=== PATIENT | female | born 1985 | race Caucasian/White ===

== ENCOUNTER 2016-07-09 07:16 | Day surgery (SDC) | payer OTHER ==
[~2016-07-09 07:16] MED LIST: PROPOFOL INJ 200 MG/20 ML VIAL IV ONE
[2016-07-09 08:50] VITALS: BP 112/62
--- NOTE | 2016-07-09 13:29 | Operative Report ---
Operative Report DATE OF SURGERY: 07/09/16 Operative Report: The risks, benefits and alternatives of the procedure including risks of bleeding, perforation requiring surgery are explained to the patient in detail informed consents obtained. Patient is taken back to the endoscopy suite and placed in a left, lateral decubital position. Timeout is called. Propofol medications administered. A rectal examination was done which did not reveal any masses, tears or fissures. An Olympus was scope is inserted patient's rectum. The scope was then gradually advanced all the way to the cecum. The cecum as identified by the usual anatomical landmarks including the ileocecal valve as well as the appendiceal office. Photodocumentation is obtained. Scope was then sequentially pulled back creative rest segments of the colon including the ascending colon, hepatic flexure, transverse colon, slight flexure , descending colon and finally into the rectosigmoid portions of the colon. Retroflexion maneuvers performed. PREOPERATIVE DIAGNOSIS: Personal history of polyps, colon surveillance POSTOPERATIVE DIAGNOSIS: Mild terminal ileitis. No further polyps noted. Internal hemorrhoids OPERATION: Colonoscopy with biopsy SURGEON: DAISHA HARRISON ANESTHESIA: LMAC TISSUE REMOVED OR ALTERED: Terminal ileum specimens obtained COMPLICATIONS: None. ESTIMATED BLOOD LOSS: none. INTRAOPERATIVE FINDINGS: As noted above. PROCEDURE: Patient tolerated procedure well. No immediate postprocedure complications are noted. Patient is discharged in good condition. Discharge date 07/09/2016. Discharge diet: Regular. Discharge activity: Regular. 2-3 week follow-up to discuss findings. We'll await on biopsies. 10 year surveillance colonoscopy would be adequate. Patient is instructed to call the office or proceed to the emergency room should there be any further problems or questions.
== END 2016-07-09 09:00 | disposition home or self-care (01) ==
LOC: END 07:16
PROVIDERS: ATTEND Internal Medicine Gastroenterology
PROC: 0DBB8ZX Excision of Ileum, Via Natural or Artificial Opening Endoscopic, Diagnostic (ICD-10-PCS; principal; 2016-07-09 08:00)
DX: K52.9 Noninfective gastroenteritis and colitis, unspecified (principal); K64.8 Other hemorrhoids; Z86.010 Personal history of colon polyps; I10 Essential (primary) hypertension; E66.9 Obesity, unspecified; Z68.42 Body mass index [BMI] 45.0-49.9, adult
CPT/HCPCS: 45380; 88305 ×2; J2704; 810

== ENCOUNTER → 2017-09-21 | Outpatient (CLI) | payer OTHER ==
[2017-09-21 10:07] LABS: ABSOLUTE EOSINOPHILS # (AUTO) 0.1 10^3/uL (0.0-0.6); ABSOLUTE MONOCYTES (AUTO) 0.6 10^3/uL (0.1-1.4); ABSOLUTE NEUT (AUTO) 5.9 10^3/uL (1.7-8.2); BASOPHILS % (AUTO) 0.5 % (0-2); EOSINOPHILS % (AUTO) 1.2 % (0-6); HEMATOCRIT 38.4 % (36.0-47.0); MEAN CORPUSCULAR HEMOGLOBIN 27.5 pg (27.0-33.4); MEAN CORPUSCULAR HGB CONC 33.8 g/dL (32.0-36.0); MEAN CORPUSCULAR VOLUME 81 fl (80-97); MONOCYTES % (AUTO) 6.7 % (3-13); PLATELET COUNT 332 10^3/uL (150-450); RED BLOOD COUNT 4.71 10^6/uL (3.72-5.28); RED CELL DISTRIBUTION WIDTH 13.8 % (11.5-14.0); SEGMENTED NEUTROPHILS % (AUTO) 68.6 % (42-78); TOTAL CELLS COUNTED % (AUTO) 100 %; WHITE BLOOD COUNT 8.6 10^3/uL (4.0-10.5)
[2017-09-21 10:10] LABS: ALANINE AMINOTRANSFERASE 22 U/L (9-52); ALBUMIN 4.2 g/dL (3.5-5.0); ALKALINE PHOSPHATASE 77 U/L (38-126); ANION GAP 9 (5-19); ASPARTATE AMINO TRANSFERASE 13 U/L (14-36); BILIRUBIN,DIRECT 0.3 mg/dL (0.0-0.4); BILIRUBIN,TOTAL 0.6 mg/dL (0.2-1.3); BLOOD UREA NITROGEN 11 mg/dL (7-20); CALCIUM 9.6 mg/dL (8.4-10.2); CARBON DIOXIDE 28 mmol/L (22-30); CHLORIDE 106 mmol/L (98-107); GLUCOSE 83 mg/dL (75-110); POTASSIUM 4.6 mmol/L (3.6-5.0); SODIUM 143.1 mmol/L (137-145); TOTAL PROTEIN 7.3 g/dL (6.3-8.2)
== END ==
LOC: OD 08:57
PROVIDERS: ATTEND Specialist
DX: N91.1 Secondary amenorrhea (principal)
CPT/HCPCS: 36415; 80053; 83001; 83036; 84443; 85025

== ENCOUNTER → 2018-01-13 | Outpatient (CLI) | payer OTHER ==
--- NOTE | 2018-01-13 20:43 | RADIOLOGY REPORT (SQ) ---
EXAM DESCRIPTION: MRI CERVICAL SPINE WITHOUT COMPLETED DATE/TIME: 01/13/2018 8:09 pm REASON FOR STUDY: M54.12 RADICULOPATHY, CERVICAL REGION M54.12 RADICULOPATHY, CERVICAL REGION M75.1 11 INCOMPLETE ROTATR-CUFF TEAR/RUPTR OF R SHOULDER, NOT COMPARISON: None. TECHNIQUE: Sagittal and Axial imaging includes T1, T2, STIR and gradient echo sequences. LIMITATIONS: None. FINDINGS: ALIGNMENT: Normal. VERTEBRAE: Intact. BONE MARROW: Normal. No marrow replacement or reactive changes. DISCS: Normal. No significant abnormal signal or loss of height. HARDWARE: None in the spine. CORD AND BASE OF BRAIN: Normal in size and signal intensity. SOFT TISSUES: No soft tissue masses. C1-C2: No significant spinal stenosis. C2-C3: No significant spinal stenosis or exit foraminal stenosis. C3-C4: No significant spinal stenosis or exit foraminal stenosis. C4-C5: No significant spinal stenosis or exit foraminal stenosis. C5-C6: No significant spinal stenosis or exit foraminal stenosis. C6-C7: There is a tiny midline disc/ osteophyte complex with the appearance of a small annular tear. There is no central canal or foraminal stenosis. C7-T1: No significant spinal stenosis or exit foraminal stenosis. UPPER THORACIC: Incompletely imaged. No significant spinal stenosis or exit foraminal stenosis. OTHER: No other significant finding. IMPRESSION: There is a tiny midline disc/ osteophyte complex at C6-7 with a small annular tear. TECHNICAL DOCUMENTATION: JOB ID: [id number] [employer]- All Rights Reserved Reading location - IP/workstation name: [email or web address]
--- NOTE | 2018-01-14 08:28 | RADIOLOGY REPORT (SQ) ---
EXAM DESCRIPTION: MRI RT UPPER JOINT WITHOUT COMPLETED DATE/TIME: 01/13/2018 8:09 pm REASON FOR STUDY: M75.111 INCOMPLETE ROTATR-CUFF TEAR/RUPTR OF R SHOULDER, NOT TRAUMA M54.12 RADICU LOPATHY, CERVICAL REGION M75.111 INCOMPLETE ROTATR-CUFF TEAR/RUPTR OF R SHOULDER, NOT COMPARISON: None. TECHNIQUE: Right shoulder images acquired and stored on PACS. Multiplanar imaging to include fat sen sitive sequences such as T1, water sensitive sequences such as FST2/STIR, cartilage sensitive sequenc es such as FSPD/gradient-echo sequences. LIMITATIONS: Limited signal to noise, large patient imaged in the body coil FINDINGS: BONE MARROW AND CORTEX: No worrisome bone lesions or marrow replacement. No occult fractur es. JOINT OR BURSAL EFFUSION: Physiologic joint space fluid with small amount of fluid in the subcoracoid recess GLENO-HUMERAL ARTICULATION: Normal articulation. No subluxation. No cystic change. No osteophytes or cartilage loss. ACROMION AND AC JOINT: Type 2 with moderate AC joint hypertrophy best shown on sagittal image 12. M ild narrowing of the subacromial space with trace fluid in the subacromial/subdeltoid bursa ROTATOR CUFF AND INTERVAL: Minimal increased intrinsic signal in the distal supra and infraspinatus t endons from mild tendinopathy best shown on sagittal images 3-9, and coronal images 9-12. subscapula ris is intact. No rotator interval tear. No rotator interval thickening to suggest adhesive capsulitis. LABRUM AND BICEPS LABRAL COMPLEX: Intact. No labral tear. Intra-articular long-head biceps tendon n ormal. Distal biceps in normal location in bicipital groove. REMAINDER OF LABRUM AND IGHL : No gross tear or paralabral cyst formation. Labral evaluation is less than optimal without joint distention. No thickening of IGHL to suggest adhesive capsulitis. PERIARTICULAR AND ADJACENT SOFT TISSUES: No masses or abnormal nodes. OTHER: No other significant finding. IMPRESSION: Mild distal supra and infraspinatus tendinopathy TECHNICAL DOCUMENTATION: JOB ID: [id number] [employer]- All Rights Reserved Reading location - IP/workstation name: [email or web address]
== END ==
LOC: RAD 20:09
PROVIDERS: ATTEND Orthopaedic Surgery
DX: M54.12 Radiculopathy, cervical region (principal); M75.111 Incomplete rotator cuff tear or rupture of right shoulder, not specified as traumatic
CPT/HCPCS: 72141

== ENCOUNTER → 2018-02-13 | Outpatient (CLI) | payer OTHER ==
--- NOTE | 2018-02-13 20:47 | XCELERA REPORT ---
[address] [address] Transthoracic Echocardiogram Report Name: ROSIO PINEDA Age: 32 yrs Gender: Female : 1985 Patient Status: Outpatient Patient Location: RAD Study Date: 02/13/2018 03:58 PM Reason For Study: PALPITATIONS Ordering Physician: MANDY VELIZ Performed By: Josefa Guerrero Interpretation Summary technically poor study using this GE machine, and pt 304#. Suboptimal SAX of AV, unable to see valve configuration. Very poor A4 chamber view, and no Ap 2 chamber view. Unable to assess biplane LVEF. R heart poorly visualized. Only a few observations made. Minimal post pericardial effusion. AV poorly vsualized, no suspected. No AR. MV appears normal, no MS, no MR, and LA not enlarged by M-mode, CHON not calculated by statistical technician. LV only seen in PLAX, poorly seen in Apical view and no A2 chamber view recorded. Probably normal LV size, and LV function based on PLAX view only. Incomplete LV segmental analysis. Probably no LV diastolic dysfunction based on E/E' ratio. RH poorly visualized, no PVSP derived due to no TR jet imaged. MMode/2D Measurements & Calculations RVDd: 3.0 cm LVIDd: 5.6 cm FS: 39.3 % Ao root diam: 2.4 cm IVSd: 0.50 cm LVIDs: 3.4 cm EDV(Teich): 155.3 ml Ao root area: 4.6 cm2 LVPWd: 0.89 cm ESV(Teich): 48.0 ml EF(Teich): 69.1 % Doppler Measurements & Calculations MV E max ryan: MV dec slope: Ao V2 max: LV V1 max P.0 cm/sec 130.8 cm/sec 3.4 mmHg MV A max ryan: 752.0 cm/sec2 Ao max PG: LV V1 max: 52.8 cm/sec MV dec time: 0.14 sec 6.8 mmHg 91.9 cm/sec MV E/A: 2.0 PA V2 max: TR max ryan: 102.5 cm/sec 253.1 cm/sec PA max P.2 mmHg TR max P.6 mmHg Left Ventricle The left ventricle is not well visualized. Consider additional methods to assess LVEF such as MUGA scan, CTA heart, cardiac MRI, FERNANDO, etc. if clinically indicated. The left ventricular ejection fraction is normal. Doppler measurements suggest normal left ventricular diastolic function. Regional wall motion abnormalities cannot be excluded due to limited visualization. The left ventricular apex is not well visualized. Right Ventricle The right ventricle is normal size. Atria Right atrium not well visualized secondary to technical limitations. The left atrial size is normal. There is no Doppler evidence for an interatrial shunt. Mitral Valve The mitral valve is normal in structure and function. There is no evidence of mitral valve prolapse. There is no mitral valve stenosis. There is no mitral regurgitation noted. Aortic Valve The aortic valve is normal in structure and functions normally. The aortic valve is not well visualized secondary to technical limitations. There is no aortic valvular vegetation. There is no aortic valve stenosis. No aortic regurgitation is present. Tricuspid Valve The tricuspid valve is not well visualized secondary to technical limitations. Tricuspid regurgitation jet envelope not well defined to measure RV systolic pressure accurately. Great Vessels The aortic root is normal size. Effusions Minimal pericardial effusion. I WMSI = 1.00 % Normal = 100 Segments Size X - Cannot 1 - Normal 2 - 3 - Akinetic4 - 1-2 small Interpret Hypokinetic Dyskinetic 3-5 moderate 5 - 6-14 large Aneurysmal 15-16 diffuse : MANDY VELIZ > Mandy Veliz
== END ==
LOC: RAD 15:14
PROVIDERS: ATTEND Internal Medicine Cardiovascular Disease
DX: R00.2 Palpitations (principal)
CPT/HCPCS: 93306